=== PATIENT | female | born 1985 | race Caucasian/White ===

== ENCOUNTER 2017-10-26 15:07 | Outpatient (CLI) | END 2017-10-26 15:08 | disposition home or self-care (01) ==

== ENCOUNTER 2020-11-19 15:55 | Emergency (ER) | payer BC, OTHER ==
--- NOTE | 2020-11-19 16:28 | XRAY Report ---
PROCEDURE: Elbow 3 View RT INDICATIONS: Trauma TECHNIQUE: 3 views of the elbow were acquired. COMPARISON: None FINDINGS: Bones: No fractures or dislocations. No suspicious bony lesions. Soft tissues: No elbow joint effusion. No suspicious soft tissue calcifications. IMPRESSION: No visualized acute fracture or dislocation. However, occult injury cannot be excluded. Recommend connie rt interval imaging follow-up in 7-10 days as clinically indicated for additional evaluation. Reviewed by: Vandana Camilo MD on 11/19/2020 4:27 PM PDT Approved by: Vandana Camilo MD on 11/19/2020 4:27 PM PDT Station ID: [id number]
[2020-11-19 18:23] VITALS: BP 136/86
[2020-11-19] MEDS ORDERED: oxyCODONE 5 MG TABLET PO STA (18:29)
--- NOTE | 2020-11-19 18:31 | ED Physician Documentation ---
History of Present Illness - Stated complaint Stated Complaint: RT ARM INJ - Chief complaint Chief Complaint: Trauma Ext - History obtained from History obtained from: Patient - History of Present Illness Timing: How many hours ago (3) Pain level max: 9 Pain level now: 6 - Additonal information Additional information: 35-year-old female presents to the emergency department with a right forearm and right elbow pain. They were using a tow rope to pull part of a dock out of the water when it came unhooked and the metal hook hit her in the forearm/elbow. Worse with moving better with rest. Patient is right-handed. Review of Systems Constitutional: denies: Fever GI: denies: Vomiting Skin: denies: Rash PD PAST MEDICAL HISTORY - Past Medical History Past Medical History: No - Past Surgical History Past Surgical History: No - Present Medications Home Medications: Ambulatory Orders Medication Instructions Recorded Confirmed Ibuprofen [Motrin] 800 mg PO Q8H PRN #30 tablet 11/19/20 Oxycodone HCl/Acetaminophen 1 - 2 each PO Q6H PRN #7 tablet 11/19/20 [Percocet 5-325 mg Tablet] - Allergies Allergies/Adverse Reactions: Allergies Allergy/AdvReac Type Severity Reaction Status Date / Time No Known Drug Allergies Allergy Verified 11/19/20 16:06 - Living Situation Living Arrangement: reports: At home - Family History Family history: reports: Non contributory - Immunizations Immunizations are current?: Yes Immunizations: TDAP current <10years PD ED PE NORMAL - Vitals Vital signs reviewed: Yes - General General: Alert and oriented X 3 - Derm Derm: Warm and dry - Extremities Extremities: Other (Abrasion, swelling and ecchymosis to the right elbow and right forearm. Neurovascular intact. No deformity. Full range of motion of the wrist and elbow without significant pain. No pain with supination and pronation of the forearm.) - Neuro Neuro: Alert and oriented X 3 Results - Vitals Vitals: Vital Signs - 24 hr 11/19/20 11/19/20 16:07 18:22 Temperature 36.5 C 36.6 C Heart Rate 88 76 Respiratory 16 22 Rate Blood Pressure 150/100 H 136/86 H O2 Saturation 99 100 Oxygen O2 Source Room air - Rads (name of study) Right elbow x-ray Radiology: Final report received, EMP read contemporaneously, See rad report (No acute abnormality) Right forearm x-ray Radiology: Final report received, EMP read contemporaneously, See rad report (No acute abnormality) PD MEDICAL DECISION MAKING - ED course Complexity details: reviewed results, considered differential, d/w patient, d/w family ED course: Patient placed in sling for comfort. Pain well controlled. No acute findings on x-ray. Neurovascularly intact. Using the hand freely. Patient counseled regarding signs and symptoms for which I believe and urgent re-evaluation would be necessary. Patient with good understanding of and agreement to plan and is comfortable going home at this time This document was made in part using voice recognition software. While efforts are made to proofread this document, sound alike and grammatical errors may occur. Departure - Departure Disposition: 01 Home, Self Care Clinical Impression: Contusion of forearm, right Qualifiers: Encounter type: initial encounter Qualified Code(s): S50.11XA - Contusion of right forearm, initial encounter Condition: Good Instructions: ED Contusion Upper Ext Follow-Up: VALERIE GRADY ARNP [Primary Care Provider] - Within 1 week Prescriptions: Ibuprofen [Motrin] 800 mg PO Q8H PRN #30 tablet PRN Reason: PAIN &/OR FEVER Oxycodone HCl/Acetaminophen [Percocet 5-325 mg Tablet] 1 - 2 each PO Q6H PRN #7 tablet PRN Reason: pain Comments: There are no fractures on x-ray today. Follow-up with your doctor for further care. You can use the sling as needed. Return if you worsen. I am prescribing a short course of narcotic pain medication for you. These are potentially dangerous and addictive medications that should be used carefully. These medications may constipate you. Take an slyo-wfv-modogwd stool softener (docusate) twice daily with plenty of water while taking these medications. If you go 24 hours without a bowel movement, take pyed-bqo-clwquyk miralax, per package instructions. Do not drink or drive while taking these medications. If you received narcotic or sedating medications while in the emergency department, do not drive for 24 hours. Store this medication in a safe, secure place and out of reach of children. It is a violation of federal law to give or sell this medication to another person or to use in a manner other than prescribed. The ED will not refill narcotic prescriptions, including prescriptions lost or stolen. To dispose of unwanted medications: 1. [facility] at [address] in [place] has a medication drop box. They accept prescription medications (in pill form) Thursday through Thursday 9:00 a.m. to 5:00 p.m. 2. The [facility] [employer] accepts prescription medications (in pill form only) for disposal year round. Call for more information. 3. Contact the [facility] for the next [facility] sponsored prescription drug collection event. , [phone], or [phone]; Discharge Date/Time: 11/19/20 19:01
--- NOTE | 2020-11-19 18:56 | XRAY Report ---
PROCEDURE: Forearm RT INDICATIONS: tow rope hook vs arm TECHNIQUE: 2 views of the forearm were acquired. COMPARISON: None. FINDINGS: Bones: No acute fractures or dislocations. No suspicious bony lesions. Soft tissues: No suspicious soft tissue calcifications or masses. Mild soft tissue edema of the med ial aspect of the elbow. IMPRESSION: No acute osseous abnormality. If there is clinical concern or persistent symptoms, additional imaging such as repeat radiographs or advanced imaging (e.g. CT, MRI) may be helpful for further evaluation. Reviewed by: Bautista Lewis MD on 11/19/2020 5:54 PM [facility]IM[facility] Approved by: Bautista Lewis MD on 11/19/2020 5:54 PM AIMEE Station ID: [id number]
== END 2020-11-19 19:01 | disposition home or self-care (01) ==
LOC: ED 15:55
DX: S50.11XA Contusion of right forearm, initial encounter (principal); S50.811A Abrasion of right forearm, initial encounter; M25.521 Pain in right elbow; W20.8XXA Other cause of strike by thrown, projected or falling object, initial encounter; Y93.89 Activity, other specified
CPT/HCPCS: 73080; 73090; 99283; A9270

== ENCOUNTER 2020-12-13 08:49 | Day surgery (SDC) | payer BC ==
[~2020-12-13 08:49] MED LIST: ACETAMINOPHEN 1,000 MG/100 ML 100 ML IV ONE; CELECOXIB 100 MG CAPSULE PO ONE; GABAPENTIN 400 MG CAPSULE ONE; ceFAZolin 2 GM/50 ML 2 GM/50 ML BAG IV ONE
[2020-12-13] MEDS ORDERED: LACTATED RINGERS 1,000 ML IV ONE ×2 (08:51→11:39)
[2020-12-13 09:15] LABS: HCG UR QUAL NEGATIVE
[2020-12-13] MEDS ORDERED: METOCLOPRAMIDE 10 MG/2 ML VIAL IVP PRN (09:50)
[2020-12-13] MEDS ORDERED: MORPHINE 2 MG/ML CARPUJECT IVP PRN (09:50)
[2020-12-13] MEDS ORDERED: HYDROmorphone 0.5 MG/0.5 ML SYRINGE IVP PRN ×2 (09:50→11:42)
[2020-12-13] MEDS ORDERED: NALOXONE 0.4 MG/ML VIAL IVP PRN (09:50)
[2020-12-13] MEDS ORDERED: ePHEDrine 50 MG/ML VIAL IVP PRN (09:50)
[2020-12-13] MEDS ORDERED: ONDANSETRON 4 MG/2 ML VIAL IVP PRN ×2 (09:50→11:42)
[2020-12-13] MEDS ORDERED: fentaNYL 100 MCG/2 ML VIAL IVP PRN (09:50)
[2020-12-13] MEDS ORDERED: ATROPINE ABBOJECT 1 MG/10 ML SYRINGE IVP PRN (09:50)
--- NOTE | 2020-12-13 09:50 | ANESTHESIA ---
Pre-Anesthesia VS, & Labs - Diagnosis undesired fertility, need for IUD removal - Procedure Bilat Laparoscopic tubal ligation Vital Signs: Temp Pulse Resp BP Pulse Ox 35.8 C L 80 14 126/84 H 98 12/13/20 08:56 12/13/20 08:56 12/13/20 08:56 12/13/20 08:56 12/13/20 08:56 Height: 5 ft 7 in Weight (kg): 89 kg Body Mass Index: 30.7 BMI Classification: Obese - Is Patient ?: No - Lab Results Current Lab Results: Laboratory Tests 12/13/20 09:29: POC Whole Bld Glucose 92 Lab results reviewed: Yes Home Medications and Allergies Home Medications: Ambulatory Orders buPROPion [Wellbutrin Sr] 150 mg PO DAILY 12/12/20 buPROPion [Wellbutrin Sr] 150 mg PO DAILY 12/12/20 Allergies/Adverse Reactions: Allergies Allergy/AdvReac Type Severity Reaction Status Date / Time No Known Drug Allergies Allergy Verified 11/19/20 16:06 Anes History & Medical History - Anesthetic History Anesthesia Complications: reports: No previous complications Family history of Anesthesia Complications: Denies Family history of Malignant Hyperthermia: Denies - Medical History Cardiovascular: reports: None Pulmonary: reports: None Gastrointestinal: reports: None Urinary: reports: None Musculoskeletal: reports: None Endocrine/Autoimmune: reports: None Skin: reports: Eczema Smoking Status: Never smoker History of Cancer?: No - Surgical History Orthopedic: reports: Shoulder arthroplasty Exam General: Alert, Oriented x3, Cooperative Dental: WNL Mouth Openin Fingerbreadth Neck Mobility: Normal Mallampati classification: II Thyromental Distance: 4-6 cm Respiratory: Lungs clear, Normal breath sounds, No respiratory distress Cardiovascular: Regular rate Neurological: Normal speech Mental/Cognitive Status: Alert/Oriented X3, Normal for patient Cognitive Status: Within normal limits Plan Anesthesia Type: General Consent for Procedure(s) Verified and Reviewed: Yes Code Status: Attempt Resuscitation ASA classification: 1-Healthy patient Is this case an emergency?: No
[2020-12-13] MEDS ORDERED: LACTATED RINGERS 1,000 ML IV SCH (10:00)
[2020-12-13] MEDS ORDERED: LIDOCAINE MPF 2%-EPI 1:200000 20 ML VIAL ONE (10:07)
[2020-12-13] MEDS ORDERED: BUPIVACAINE 0.5% PF 30 ML VIAL ONE (10:07)
[2020-12-13] MEDS ORDERED: fentaNYL 100 MCG/2 ML VIAL ONE ×2 (10:08→11:24)
[2020-12-13] MEDS ORDERED: MIDAZOLAM 2 MG/2 ML VIAL ONE (10:08)
[2020-12-13] MEDS ORDERED: ROCURONIUM 50 MG/5 ML VIAL ONE (10:10)
[2020-12-13] MEDS ORDERED: PROPOFOL 200 MG/20 ML VIAL IVP ONE (10:11)
[2020-12-13] MEDS ORDERED: LIDOCAINE-MPF 2% 5 ML VIAL ONE (10:11)
[2020-12-13] MEDS ORDERED: DEXAMETHASONE 4 MG/ML VIAL ONE (10:47)
[2020-12-13] MEDS ORDERED: ONDANSETRON 4 MG/2 ML VIAL ONE ×2 (10:47→13:02)
[2020-12-13] MEDS ORDERED: BUPIVACAINE 0.5% PF 30 ML VIAL SUBQ ONE (10:49)
[2020-12-13] MEDS ORDERED: LIDOCAINE MPF 2%-EPI 1:200000 20 ML VIAL SUBQ ONE (10:50)
[2020-12-13] MEDS ORDERED: NEOSTIGMINE 1 MG/1 ML 10 ML MDV ONE (11:05)
[2020-12-13] MEDS ORDERED: GLYCOPYRROLATE 1 MG/5 ML VIAL ONE (11:05)
[2020-12-13] MEDS ORDERED: oxyCODONE 5 MG TABLET PO PRN (11:42)
[2020-12-13] MEDS ORDERED: LORazepam 2 MG/ML VIAL IVP PRN (11:42)
--- NOTE | 2020-12-13 11:45 | OPERATIVE REPORT ---
Operative Report - General Procedure Date: 12/13/20 Planned Procedure: 1. Laparoscopic bilateral salpingectomy 2. Removal of IUD. Pre-Op Diagnosis: Undesired fertility. IUD in place Procedure Performed: 1. Laparoscopic bilateral salpingectomy 2. Removal of IUD. Post Op Diagnosis: Same. - Procedure Note Primary Surgeon: Drake Thurston MD Anesthesia Provider: Doroteo Mina CRNA Anesthesia Technique: General ET tube Pathology: Both fallopian tubes IV Fluids (mL): 900 Estimated Blood Loss (mL): 25 Urine Output (mL): 50 Indications: Patient desired permanent sterilization. She also would like to have her IUD removed. The option of replacement was reviewed with the patient but she did not want this time. Findings: Upon entering the abdominal cavity there is no evidence of any injury the tubes appeared to be free of disease there was a left paratubal cyst which was removed. Upon entering the pelvis the IUD strings were not visible therefore they were grasped with a Jesus forceps and removed without difficulty. - Other Other Information/Narrative: Patient was taken to the operating room and following adequate endotracheal anesthesia she was placed in the dorsal lithotomy position in [facility]. She had a pelvic exam which revealed a uterus which was anterior. She was then prepped and draped in the usual fashion. A timeout was performed which concerns were addressed. A speculum was then placed in the vagina cervix visualized grasped with a single-tooth tenaculum the strings were not visible so Danforth forceps were utilized to probe the uterus and the strings were grasped and brought out was well as the Mirena IUD. 5 cc of 0.5% Marcaine with lidocaine 2% with epinephrine was injected in both uterosacral ligaments. Following dilatation of the cervix up to 7 mm and sounded the uterus to 10 cm a HUMI uterine manipulator was placed under direct visualization. The seam press operator's gloves were then changed and then following local anesthesia with Marcaine and lidocaine with epinephrine an incision is made in the subumbilical area in a vertical orientation. A 5 mm trocar and sheath were placed atraumatically under direct visualization. Then following transillumination of the abdominal wall 2 additional ports were placed both in the left and right side following local anesthesia with Marcaine epinephrine and lidocaine. The pelvis was inspected with the aforementioned findings. The left fallopian tube was grasped at its fimbriated end and the mesosalpinx was cauterized and transected utilizing the LigaSure. This was done all the way to the cornu. The tube was then grasped at the uterine and brought up through the trocar however the paratubal cyst was not able to be removed this way. It was then grasped and crushed utilizing the LigaSure and then brought through the incision. At this point the contralateral side was treated in identical fashion with the exception of there being an absence of a paratubal cyst. Both mesosalpinx were inspected for bleeding none was noted. At this point the CO2 was allowed to escape from the abdominal cavity this incision was closed utilizing 4-0 Monocryl with Dermabond for closure of the incision. At this point attention was changed to the pelvis and then the HUMI uterine manipulator was removed without difficulty. Patient taught procedure well and was taken recovery in stable condition sponge and needle counts were correct.
[2020-12-13 12:47] VITALS: BP 134/90
== END 2020-12-13 08:50 | disposition home or self-care (01) ==
LOC: SDS 08:49
PROVIDERS: ATTEND Obstetrics & Gynecology
PROC: 0UPD7HZ Removal of Contraceptive Device from Uterus and Cervix, Via Natural or Artificial Opening (ICD-10-PCS; principal; 2020-12-13 09:45)
PROC: 0UT74ZZ Resection of Bilateral Fallopian Tubes, Percutaneous Endoscopic Approach (ICD-10-PCS; 2020-12-13 09:45)
DX: Z30.2 Encounter for sterilization (principal); Z30.432 Encounter for removal of intrauterine contraceptive device; N83.8 Other noninflammatory disorders of ovary, fallopian tube and broad ligament; E66.9 Obesity, unspecified; Z68.30 Body mass index [BMI] 30.0-30.9, adult
CPT/HCPCS: 58301; 58661; 81025; A9270; J0131; J0690; J7120